=== PATIENT | female | born 1955 | race Hispanic/Latino ===

== ENCOUNTER 2018-06-06 05:54 | Inpatient (IN) | payer BC, SELFPAY ==
[2018-05-31 13:41] VITALS: BMI 27.4
[2018-06-06] VITALS (13 sets, daily range): BP systolic 84–125; BP diastolic 51–67; PULSE 69–94; RESP 11–19; TEMP 36.3–36.7; O2SAT 95–100; BMI 27.4
[2018-06-06] MEDS: PREGABALIN 75 MG CAPSULE PO (06:55)
[2018-06-06] MEDS: ACETAMINOPHEN 325 MG TABLET 975 MG PO (06:55)
[2018-06-06] MEDS: CELECOXIB 200 MG CAPSULE PO (06:55)
--- NOTE | 2018-06-06 07:06 | DI.RAD.S_ITS ---
PROCEDURE: XR PELVIS 1-2V INDICATIONS: post operative left hip TECHNIQUE: 1 view of the lower pelvis acquired. [facility] LATERAL HIP RT, 02/03/2017, 11:10. [facility] [place] Lydia, CR, XR PELVIS W LATERAL HIP RT, 01/14/2017, 9:14. [facility], CR, PELVIS 1 OR 2 VIEWS, 01/04/2017, 11:29. [facility] [place] Lydia, CR, XR PELVIS W LATERAL HIP RT, 12/22/2016, 11:46. [facility] Lydia, CR, XR PELVIS WITH BILATERAL LATERAL HIPS, 05/11/2018, 16:48. FINDINGS: Bones: Patient is status post remote right hip arthroplasty which is stable in appearance compared to prior examinations. Patient is status post recent left hip arthroplasty, with hardware components in expected positions. The hip joint appears congruent. The visualized bony structures appear intact. Soft tissues: Overlying postoperative changes are noted. No suspicious soft tissue densities. IMPRESSION: Expected postsurgical change for recent left hip arthroplasty. Dictated by: Erendira Hilliard MD, PhD on 06/06/2018 at 8:57 Approved by: Erendira Hilliard MD, PhD on 06/06/2018 at 8:59
--- NOTE | 2018-06-06 07:07 | SUR.PREOP ---
Assumed care of pt. Report given by Jewell. Daughter translating at bedside when needed. Pt appears calm.
[2018-06-06] MEDS: LACTATED RINGERS 1,000 ML 42 ML IV ×2 (07:36→09:26)
--- NOTE | 2018-06-06 07:48 | PM.PREOP ---
Pre-operative Note Interval Note Pre-op Check: Yes History & Physical Reviewed by Physician Changes: No
[2018-06-06] MEDS: CEFAZOLIN 2 GM/100 ML FROZ.PIGGY IV ×3 (07:55→23:52)
[2018-06-06] MEDS: TRANEXAMIC ACID 1,000 MG VIAL 1000 MG INJ ×2 (08:21→09:18)
[2018-06-06] MEDS: BUPIVACAINE 0.25% W/ EPI VIAL 50 ML INJ (08:31)
--- NOTE | 2018-06-06 08:37 | SUR.OPER ---
Lateral on padded OR bed. Gel axillary roll. Arms secured on padded armboard with pillow supporting top arm. Padded hip positioner braces x4 - anterior and posterior chest and pelvis. Additional gel pad used anterior pelvis. Gel pad under bottom leg from knee to foot and secured with tape over sheet.
--- NOTE | 2018-06-06 10:07 | SUR.PHASEI ---
pt meets criteria for tansfer to [place], Rn unavailable at this time for report.
[2018-06-06] MEDS: LACTATED RINGERS 1,000 ML 125 ML IV ×2 (11:13→18:58)
--- NOTE | 2018-06-06 11:41 | PC.NURSE ---
Pt to room 224 via bed from PACU. Pt is croatian speaking and has family at the bedside. Pt denies pain, nausea, or shortness of breath. Pt is very sleepy but completely alert and intact when questions are asked of her. Pt and family oriented to room, call light, bed controls, and tv controls. Spouse is planning to spend the night at the hospital to assist with interpretation/language. PT denies needs at this time and agrees to call for assistance as needed. Bed alarm on for safety.
--- NOTE | 2018-06-06 12:01 | P.OP_ITS ---
Operative Date/Time/Diagnoses Date of procedure: 06/06/18 Time of procedure: 08:29 Pre-op diagnosis: Left hip degenerative joint disease Post-op diagnosis: same Procedure & Clinicians Procedure: Left total hip arthroplasty (CPT code 17791 with diver assistant) Same procedure as scheduled: Yes Indications: Patient is an 62-year-old female with severe left hip DJD. The patient has pain with activities and at rest, limited ambulation and activity tolerance, difficulties with ADLs, and failure of conservative treatment. We have discussed the nature of condition, treatment options, risks and benefits, and patient elects to proceed with total hip arthroplasty and gives informed consent. Surgeon: Corey Horowitz Pasteuriser Operator: Erika Carrero Anesthesia Type: General and Spinal Operative Notes Closure Type: primary Specimen(s): none sent Implants & Drains: Acetabulum: Madden and Nephew R3 acetabular component size 50 mm Femoral component: Madden [employer] Nephew Synergy stem size 12 with standard offset Femoral head: 32 mm + 4 Oxinium Estimated Blood Loss (mL): 100 Procedure in detail: After satisfaction induction of anesthetic, and administration of IV antibiotics, the patient was positioned in the lateral decubitus position with all bony prominences well padded and pelvic position secured using a hip supervisor electronics assembly positioning device. Left hip and lower extremity prepped and draped in the usual sterile fashion, 1st dose of intravenous tranexamic acid was administered, then a longitudinal incision was created centered over the greater trochanter and carried sharply through the skin and subcutaneous tissues down to the fascia isaac which was divided longitudinally and retracted with a Charnley retractor. External rotators visualize, cut, tagged, and retracted posteriorly, then the capsule was cut in a T-type fashion with the corners tagged and retracted. Hip was dislocated and femoral neck cut made according to preoperative templating. Acetabular retractors then placed, and the acetabular labrum and osteophytes were excised. The acetabulum was then sequentially reamed to 49 mm with an excellent circumferential ream and fit with the trial. The trial component was removed and a permanent size 50 mm Madden and Nephew R3 acetabular component was selected, positioned, and impacted with satisfactory position and fixation achieved. Permanent liner was then inserted with the elevated lip directed posteriorly. Soft tissue then removed off the lateral femoral neck in the lateral neck was entered using a box osteotome. T-handled reamers placed down the canal followed by sequential broaching to 12 with the final broach left in place for trial reduction which demonstrated good leg length, range of motion, and stability characteristics with a 32 mm +0 trial ball, but excellent stability leg length and range of motion characteristics with a 32 mm +4 trial ball. The trial and broach were removed, and a permanent size 12 Madden and Nephew Synergy stem was selected and inserted with excellent position and fixation achieved. Another trial reduction yielded the above characteristics so the trial ball was exchanged for a permanent 32 mm + 4 Oxinium ball. The hip was irrigated and reduced and excellent leg length range of motion and stability characteristics were achieved and maintained. The hip was copiously irrigated, and the capsule repaired with #2 Ethibond, and the piriformis was repaired back to the greater trochanter with the same. Fascia isaac closed with interrupted #1 Ethibond sutures, and the subcutaneous tissues were closed in 2 layers of 0 Vicryl and 2 0 Vicryl. Skin was closed with jeannie and sterile dressings applied. Second dose of tranexamic acid was administered intravenously, and the anesthetic was terminated. Complications: none Condition: stable Disposition: PACU Plan for aftercare: Patient will be admitted to the acute care ramírez, and anticipate discharge on postop day 1-2 with follow-up in office in 10-14 days. Outpatient physical therapy will be arranged and patient will continue to observe posterior hip precautions. Patient will continue use of postoperative Lovenox for 10 days postop.
--- NOTE | 2018-06-06 17:57 | PT.IIE ---
Current Diagnoses Unilateral primary osteoarthritis, left hip (06/06/18) Other intervertebral disc degeneration, lumbar region (06/06/18) Surgery Performed Operation Date: 06/06/18 07:45 Actual Procedures p Total Hip Arthroplasty(Left) - Corey Horowitz MD Surgical History (Last Updated 05/31/18 @ 13:48 by Carol Laehy, RN) History of bladder surgery (Acute) Medical History (Last Updated 05/31/18 @ 13:50 by Carol Leahy, RN) Anxiety (Acute) Bilateral shoulder pain (Acute) GERD (gastroesophageal reflux disease) (Acute) History of headache (Acute) Hot flashes (Acute) Hyperlipidemia (Acute) Impaired vision (Acute) Impairment of balance (Acute) Osteoarthritis (Acute) Other intervertebral disc degeneration, lumbar region (Acute) Post-menopause (Acute) Primary osteoarthritis of left hip (Acute) Physical Therapy Inpatient Evaluation/Re-Eval M1 PT/OT-IP Prior Functional Status Start: 06/06/18 15:10 Freq: NEEDED Status: Active Protocol: Document 06/06/18 16:02 EA (Rec: 06/06/18 16:13 EA [id number]) Medical Review Prior Functional Status Medical History Reviewed Yes Diet/Fluid Consistency Regular Communication WNL Mobility and Gait Indep with ability to ambulate > 2 blocks with STC Activities of Daily Living and IADL's Independent Social History Household Members spouse family children Living Arrangements House Number of Floors (Floors) Two Floors Number of Stairs To Enter/Railing? 6 steps with rails to both sides. Home Equipment Raised Toilet Seat Without Armrests Employment Status Unemployed Additional Social History Comment with supportive and children M2 PT-IP Current Condition Start: 06/06/18 15:10 Freq: NEEDED Status: Active Protocol: Document 06/06/18 16:02 EA (Rec: 06/06/18 16:13 EA [id number]) Physical Therapy Current Condition Current Condition Evaluation Date 06/06/18 Treatment Diagnosis Left JUDITH Onset Date 06/06/18 Precautions Posterior Hip Precautions No Hip Flexion > 90 degrees No Hip Internal Rotation No Hip Adduction Other Precautions Always turn to good side when ambulating; pillow inbet knees when sleeping Weight Bearing Status Weight Bearing Status Weight Bear as Tolerated M3 PT-IP Subjective Start: 06/06/18 15:10 Freq: NEEDED Status: Active Protocol: Document 06/06/18 16:02 EA (Rec: 06/06/18 16:13 EA [id number]) Subjective Physical Therapy Visit Type Type Initial Evaluation Visit Start Time 14:00 Visit Stop Time 14:45 Total Visit Minutes 45 Physical Therapy Visit Comments Patient Comments Patient wants to mobilize and transfers to chair for before dinner. Short Term Goals Be able to transfer and mobilize indep. Therapy Pain Assessment Pain When Pain Assessed During Mobility Pain Present Pain Present Pain Reported M4 PT-IP Mobility and Gait Start: 06/06/18 15:10 Freq: NEEDED Status: Active Protocol: Document 06/06/18 16:02 EA (Rec: 06/06/18 17:09 EA [id number]) PT-Bed Mobility Assessment Rolling Level of Assist Minimal Assistance Supine to Sit Supine to Sit Minimal Assistance Sit to Supine Sit to Supine Contact Guard Assistance Scooting Scooting to Edge of Bed Minimal Assistance PT-Transfer Assessment Sit to and From Stand Sit to and from Stand Independent Equipment Transfer Assistive Device Gait Belt Front Wheeled Walker Transfers Transfer Destination Bed Chair Bedside Commode Transfer Technique Stepping transfers Transfer Ability Level of Assist Contact Guard Assistance Gait Assessment Gait Gait Assistance Required: Contact Guard Assist Able to Maintain Weight Bearing Status Yes During Gait Assistive Devices Assistive Device Front Wheeled Walker Gait Deviations General Gait Pattern Antalgic Decreased Stride Length Factors Limiting Gait Function Factors Limiting Gait Function Decreased Activity Tolerance Decreased Strength Pain Comments Gait Comments Requires cues as patient does not wants to place weight to affected leg Stair Climbing Assessment Devices Stair Climbing Assistive Devices Four Wheel Walker PT-Balance Assessment Sitting Balance and Reactions Static Sitting Balance Ability Normal Dynamic Sitting Balance Ability Good Standing Balance and Reactions Static Standing Balance Ability Good Dynamic Standing Balance Ability Fair M5 PT-IP Objective Assessments Start: 06/06/18 15:10 Freq: NEEDED Status: Active Protocol: Document 06/06/18 16:02 EA (Rec: 06/06/18 17:09 EA [id number]) Orientation Orientation/Cognition Level of Alertness Alert Orientation Name Date Year Language Function Ability Bermudian as Second Language Safety Awareness Understands Safety Issues Comments Requires job recruiter as patient first language is estonian Gross Range of Motion Upper Extremity ROM Assessment Within Functional Limits Lower Extremity ROM Assessment Within Functional Limits Impairments Right not properly assess due to pre-caution Strength Upper Extremity Strength Assessment Within Functional Limits Lower Extremity Strength Assessment Within Functional Limits Hip 3/5 at least bt not properly tested due to pre-caution Coordination Assessment Gross Coordination Gross Coordination WNL Assessment Finger to Nose Test Normal Performance Pronation/Supination Test Normal Performance Foot Tapping Test Normal Performance Heel on Black Test Normal Performance Sensation Assessment Sensation Gross Sensation WNL Muscle Tone Muscle Tone WNL Yes M6 PT-IP Treatment Start: 06/06/18 15:10 Freq: NEEDED Status: Active Protocol: Document 06/06/18 16:02 EA (Rec: 06/06/18 17:09 EA [id number]) Physical Therapy Treatment Exercises Exercises Ankle Pumps Gluteal Sets Quad Sets Heel Slides Education Education Provided Precautions Weight Bearing Status Post-Op Packet Safety M7 PT-IP Assessment and Plan Start: 06/06/18 15:10 Freq: NEEDED Status: Active Protocol: Document 06/06/18 16:02 EA (Rec: 06/06/18 17:09 EA [id number]) PT Summary Assessment and Plan Potential Rehabilitation Potential Excellent Status of Condition at Evaluation Stable Summary Impairments Pain ROM Strength Balance Transfers Gait Activity Tolerance Progress Towards Goals Progressing Toward Goals Assessment Summary Patient exhibits mild difficulty with bed mobility and transfers due to pain and weakness to LLE; patient at this time requires assistance for transfers and mobility. Patient would benefit with skilled PT prior to discharge tomorrow to practice functional distance amb and stairs. Patient exhibits good potential for recovery. Goals Bed Mobility Goal Independent Transfer Goal Independent Gait Goal Independent Gait Distance 50 ft Days to Meet Goals 1 Frequency of Treatment Frequency Of Treatment Twice a Day Treatment Plan Physical Therapy Treatment Plan Bed Mobility Training Transfer Training Gait Training Therapeutic Exercise Balance Retraining Post Op Education Discharge Planning Hot or Cold Pack Recommendations To Nursing Amount of Assist Needed 1 Person Assist Discharge Recommendations PT Discharge Recommendations Home with Assistance
--- NOTE | 2018-06-06 17:59 | PC.NURSE ---
Shift note: Katiana able to transfer to BSC and then to bed with minimal 1 person assist. Denies residual numbness to legs, drsg to L hip remains CDI. No drain. Voiding with no difficulty. Denies nausea, diet advanced to regular. VS stable. RA oxygen 93-98%, continuous pulse ox on per spinal order protocol. She calls appropriately, spouse Keven at bedside assisting to translate for her. Encouraged to call if she has pain or other needs/concerns.
[2018-06-06] MEDS: ASPIRIN EC 81 MG TABLET PO (21:08)
[2018-06-07 00:30] VITALS: BP 103/78; PULSE 81; RESP 15; TEMP 36.6; O2SAT 95
[2018-06-07 03:10] VITALS: BP 116/63; PULSE 80; RESP 16; TEMP 36.7; O2SAT 91
[2018-06-07] MEDS: LACTATED RINGERS 1,000 ML 125 ML IV (03:29)
[2018-06-07 05:41] LABS: Hematocrit 34.4 % (36-46); Hemoglobin 11.4 g/dL (12.0-16.0)
[2018-06-07 07:00] VITALS: BP 117/62; PULSE 78; RESP 18; TEMP 36.5; O2SAT 94
--- NOTE | 2018-06-07 08:03 | P.DS_ITS ---
History of Present Illness Date Patient Seen: 06/07/18 Time Patient Seen: 08:05 Chief complaint: [id number] Narrative: Patient is seen bedside status post left JUDITH postop day 1. Patient is doing well she is not any pain and has been ambulating well with physical therapy. She would like to go home today. She denies any nausea vomiting chest pain or shortness of breath. Discharge Providers Date of admission: 06/06/18 05:54 Primary care physician: Cb Yoder MD Consults: 06/06/18 10:37 Consult to Discharge Planning Routine Comment: Consult to Physical Therapy Evaluate & Treat Comment: Physician Instructions: post op JUDITH protocol Consult to Respiratory Therapy Evaluate & Treat Comment: Physician Instructions: Evaluate and treat Discharge provider: Radhika Low PA-C Summary Discharge Diagnosis: Left hip osteoarthritis. Hospital Course: Patient was transferred to the acute care floor status post left JUDITH on 06/06/2018. Patient tolerated the procedure well with no major complications. Patient was seen by Physical therapy who recommended that the be patient discharged home with outpatient PT. Patient is stable ready for discharge on 06/07/2018. She will go home on Lovenox for DVT prophylaxis as well as oxycodone for pain medication. Status at Discharge Cognitive/behavioral status at discharge: Alert and oriented x4 Functional status at discharge: uses cane/walker Overall status at discharge: patient is progressing back to baseline Time Spent with Patient Less than 30 minutes Exam Vital Signs (past 8 hours): - 06/07/18 00:30 06/07/18 03:10 Temperature 97.9 F 98.0 F Pulse Rate 81 80 Respiratory Rate 15 16 Blood Pressure 103/78 116/63 Pulse Oximetry 95 91 Oxygen Delivery Method Room Air Oxygen Flow Rate 2 Objective Labs Result Diagrams: 06/07/18 05:17 Labs: Laboratory Results - last 24 hr 06/07/18 05:17 Hgb 11.4 L Hct 34.4 L Discharge Plan Discharge Plan Patient Disposition: Home, Self-Care Discharge Med Rec/Prescriptions Prescriptions: New hydroxyzine pamoate 25 mg Capsule 25 mg PO Q6HR PRN (Reason: Spasms) Qty: 0 RF: 0 oxycodone-acetaminophen 5-325 mg Tablet 1 tab PO Q4HR PRN (Reason: Pain, Severe (7-10)) Qty: 0 RF: 0 enoxaparin [Lovenox] 40 mg/0.4 mL syringe 40 mg SUBCUT DAILY Qty: 4 RF: 0 Continue meloxicam 15 MG tablet 15 mg PO QDAY Qty: 0 RF: 0 naproxen [Naprosyn] 500 MG tablet 500 mg PO QDAY Qty: 0 RF: 0 VITAMIN D (Vitamin D3) 1,000 u PO QDAY Qty: 0 RF: 0 aspirin 81 MG tablet,delayed release (DR/EC) 81 mg PO BID Qty: 60 RF: 0 gabapentin 300 mg Capsule 300 mg PO TID RF: 0 Follow up/Referrals: [facility] [Provider Group] - 06/13/18 3:10 pm (With Samuel Adrian PA-C at [facility].) Provider Discharge Instructions Diet: Diet as Tolerated Activity: WBAT, follow posterior hip precautions, use walker until cleared by PT. Cold/Heat Therapy: Apply ice 20 minutes at a time at least hourly while awake. Wound Care Report to your healthcare provider any signs of infection, such as:: chills, fever, night sweats, increased pain and unusual drainage Dressing: Keep dressing clean, dry, and intact. Visit Report/Discharge Packet Instructions: DI for Hip Replacement Print Language: Lithuanian Discharge Data Primary Care Provider: Cb Yoder Attending Provider: Corey Horowitz Admit Date/Time: 06/06/18 05:54 Quality VTE Deep Vein Thrombosis/Pulmonary Embolism Present on Admission: No
[2018-06-07] MEDS: ASPIRIN EC 81 MG TABLET PO (08:34)
[2018-06-07] MEDS: CEFAZOLIN 2 GM/100 ML FROZ.PIGGY IV (08:34)
--- NOTE | 2018-06-07 11:23 | OT.IP.EVAL ---
Current Diagnoses Unilateral primary osteoarthritis, left hip (06/06/18) Other intervertebral disc degeneration, lumbar region (06/06/18) Surgery Performed Operation Date: 06/06/18 07:45 Actual Procedures p Total Hip Arthroplasty(Left) - Corey Horowitz MD Past Medical History (Last Reviewed 06/07/18 @ 08:38 by Fatimah Parker, PT) Anxiety (Acute) Bilateral shoulder pain (Acute) GERD (gastroesophageal reflux disease) (Acute) History of headache (Acute) Hot flashes (Acute) Hyperlipidemia (Acute) Impaired vision (Acute) Impairment of balance (Acute) Osteoarthritis (Acute) Other intervertebral disc degeneration, lumbar region (Acute) Post-menopause (Acute) Primary osteoarthritis of left hip (Acute) Surgical History (Last Reviewed 06/07/18 @ 08:38 by Fatimah Parker, PT) History of bladder surgery (Acute) Occupational Therapy Inpatient Evaluation/Re-Eval M1 PT/OT-IP Prior Functional Status Start: 06/07/18 16:39 Freq: NEEDED Status: Active Protocol: Document 06/07/18 11:23 INDER (Rec: 06/07/18 16:51 KYLIE [id number]) Medical Review Prior Functional Status Medical History Reviewed Yes Diet/Fluid Consistency Regular Communication WNL Mobility and Gait Indep with ability to ambulate > 2 blocks with STC Activities of Daily Living and IADL's Independent Social History Household Members spouse family children Living Arrangements House Number of Floors (Floors) One Floor Number of Stairs To Enter/Railing? 6 with 2 rails Home Environment Standard Height Toilet Tub/Shower Doors Home Equipment Raised Toilet Seat Without Armrests Shower Seat with Backrest Heart Nurse Employment Status Unemployed Additional Social History Comment Gave pt long bath sponge and shoe horn, sock aid M2 OT-IP Current Condition Start: 06/07/18 16:39 Freq: Status: Active Protocol: Document 06/07/18 11:23 PJMatt (Rec: 06/07/18 16:51 PJ [id number]) Occupational Therapy Current Condition Current Condition Evaluation Date 06/07/18 Treatment Diagnosis decreased self care, functional mobility after L JUDITH Diagnosis Onset Date 06/06/18 Post Operative Precautions Posterior Hip Precautions No Hip Flexion > 90 degrees No Hip Internal Rotation No Hip Adduction Other Precautions Always turn to good side when ambulating; pillow in between knees when sleeping Weight Bearing Status Weight Bearing Status Weight Bear as Tolerated M3 OT- IP Subjective and Pain Start: 06/07/18 16:39 Freq: Status: Active Protocol: Document 06/07/18 11:23 PJM (Rec: 06/07/18 16:51 [facility] [id number]) OT- Subjective Occupational Therapy Visit Type Type Initial Evaluation Visit Start Time 10:25 Visit Stop Time 11:23 Total Visit Minutes 58 Occupational Therapy Visit Comments Patient Comments I am going home today. Pt speaks Indonesian. and daughter here to translate. Patient/Caregiver Goals to be able to walk without a device OT Pain Assessment Pain When Pain Assessed After Treatment Pain Present Pain Present Pain Reported Location Left Hip Intensity 2 Scale Used Numeric (1 - 10) Description Aching M4 OT- IP ADL's Start: 06/07/18 16:39 Freq: Status: Active Protocol: Document 06/07/18 11:23 PJ (Rec: 06/07/18 16:51 [facility] [id number]) OT [id number] General Evaluation Self-Feeding Ability Independent OT ADL-Grooming General Evaluation Grooming Ability Independent Comments OT Grooming Comments standing at sink with FWW OT ADL-Oral Care General Eval Oral Care Ability Independent Devices Oral Care Devices Toothbrush Comments Oral Care Comments standing at sink with FWW OT ADL-Dressing General Eval Upper Body Dressing Ability Independent Lower Body Dressing Ability Minimal Assistance Areas Needing Assistance Underpants/Brief Socks Shoes Assistive Devices Dressing Assistive Devices Long Handled Shoe Horn Heart Nurse Sock Aid Comments OT Dressing Comments Provided education re: lower body dressing with manager data warehouse, sock aid and long shoe horn. Pt modif indep with underwear and socks with adaptive equipment, but needs min assist with tennis shoes due to tight fit. Pt has slip on shoes at home and family can also assist PRN. OT ADL-Toileting General Evaluation Toileting Ability Independent OT ADL-Bathing General Evaluation Bathing Ability Minimal Assistance Areas Needing Assistance Wash/Dry Lower Extremities Devices Bathing Equipment Long Handled Sponge or Truck And Transport Mechanic Held Shower Sprayer Shower Chair with Arms Grab Bars Comments OT Bathing Comments Pt plans to sponge bath until she can step over edge of tub. M5 OT- IP IADL's Start: 06/07/18 16:39 Freq: Status: Active Protocol: Document 06/07/18 11:23 PJM (Rec: 06/07/18 16:51 [facility] [id number]) OT-Instrumental Activities of Daily Living Deficits IADL Deficits Identified Deficits Home Safety Awareness Awareness of Need for Assistance at Home Good Awareness Ability to Problem Solve Emergency Able to Problem Solve Situations Medication Management Medication Management No Deficits Identified Money Management Money Management No Deficits Identified Meal Preparation Meal Preparation Caregiver Provides Assist Meal Preparation Comments 2 adult daughters and can assist PRN Co Founder And Cto Co Founder And Cto Caregiver Provides Assist Co Founder And Cto Comments 2 adult daughters and can assist PRN Driving Driving Caregiver Provides Assist M6 OT- IP Functional Cognition Start: 06/07/18 16:39 Freq: Status: Active Protocol: Document 06/07/18 11:23 PJ (Rec: 06/07/18 16:51 [facility] [id number]) Cognitive Factors Limiting Selfcare Function Cognitive Ability Level of Alertness Alert Patient Orientation Name Age Birthday Month Date Year Day of Week Place Situation Attention Span Ability Capable of Focused Attention Ability to Follow Commands Able to Follow Multi-Step Commands Memory Description No Deficits Noted Safety Awareness No Deficits Noted Problem Solving Ability No deficits Noted Executive Function Ability No Deficits Noted Abstract Thinking Ability No Deficits Noted Cognitive Comments Cognitive Assessment Comments Pt recalls 3/3 hip precautions and applies them well during self care tasks. OT- Vision and Hearing OT- Hearing Assessment OT- Hearing Assessment WFL OT- Vision Assessment Visual Acuity WFL Vision Assessment Comments No recent changes per pt. M7 OT- IP Mobility and Balance Start: 06/07/18 16:39 Freq: Status: Active Protocol: Document 06/07/18 11:23 PJ (Rec: 06/07/18 16:51 [facility] [id number]) OT- Bed Mobility Assessment Supine to Sit Supine to Sit Assist Independent Scooting Scooting to Edge of Bed Independent OT-Transfer Assessment Sit to and From Stand Sit to and from Stand Independent Transfers Transfer Ability Independent Technique Transfer Destination Bed Chair Shower Stall Toilet Transfer Technique Stand Step Pivot Devices Transfer Assistive Devices Gait Belt Front Wheeled Walker OT- Gait Assessment Gait Gait Assistance Required: Independent Assistive Devices Assistive Device Gait Belt Front Wheeled Walker OT- Balance Assessment Sitting Balance and Reactions Static Sitting Balance Ability Normal Dynamic Sitting Balance Ability Good Standing Balance and Reactions Static Standing Balance Ability Good Dynamic Standing Balance Ability Good M8 OT- IP Objective Assessments Start: 06/07/18 16:39 Freq: Status: Active Protocol: Document 06/07/18 11:23 PJM (Rec: 06/07/18 16:51 PJ [id number]) OT Gross Range of Motion Upper Extremity Range of Motion Assessment Within Functional Limits OT Strength Upper Extremity Strength Assessment Within Functional Limits OT- Coordination Assessment Upper Extremity Finger to Nose Test Within Functional Limits Finger Tapping Test Within Functional Limits OT-Muscle Tone Assessment Muscle Tone WNL Yes OT Sensation Assessment Comments Summary Comments WNL BUE Edema Edema Absent M9 OT- IP Assessment and Plan Start: 06/07/18 16:39 Freq: Status: Active Protocol: Document 06/07/18 11:23 PJM (Rec: 06/07/18 16:51 [facility] [id number]) OT Summary Assessment and Plan Potential Rehabilitation Potential Excellent Analytic Complexity at Evaluation Low Summary OT Impairments Pain Assessment Summary Low complexity OT assessment and all OT education completed in one session regarding posterior hip precautions, adapted techniques for lower body dressing, bathing, toileting. Pt has manager data warehouse and was provided with sock aid and long bath sponge and shoe horn at her request. Pt moving very well and family will provide 24 hr assist at home PRN. No further OT services needed. Discharge Recommendations OT Discharge Recommendations Home with Assistance
--- NOTE | 2018-06-07 11:31 | PC.NURSE ---
Pt showered with OT and was assisted with Dressing. Dressing to left hip changed to coversite dressing. Will provide Lovenox teaching to Pt. and perform discharge teaching.
--- NOTE | 2018-06-07 11:47 | PT.IPTN ---
Current Diagnoses Unilateral primary osteoarthritis, left hip (06/06/18) Other intervertebral disc degeneration, lumbar region (06/06/18) Surgery Performed Operation Date: 06/06/18 07:45 Actual Procedures p Total Hip Arthroplasty(Left) - Corey Horowitz MD Physical Therapy Treatment Note M2 PT-IP Current Condition Start: 06/06/18 15:10 Freq: NEEDED Status: Active Protocol: Document 06/06/18 16:02 EA (Rec: 06/06/18 16:13 EA [id number]) Physical Therapy Current Condition Current Condition Evaluation Date 06/06/18 Treatment Diagnosis Left JUDITH Onset Date 06/06/18 Precautions Posterior Hip Precautions No Hip Flexion > 90 degrees No Hip Internal Rotation No Hip Adduction Other Precautions Always turn to good side when ambulating; pillow inbet knees when sleeping Weight Bearing Status Weight Bearing Status Weight Bear as Tolerated M3 PT-IP Subjective Start: 06/06/18 15:10 Freq: NEEDED Status: Active Protocol: Document 06/07/18 09:38 DLM (Rec: 06/07/18 11:47 DLM [id number]) Subjective Physical Therapy Visit Type Type Treatment Note Visit Start Time 08:55 Visit Stop Time 09:38 Total Visit Minutes 43 Physical Therapy Visit Comments Patient Comments She feels safe to go home today, no pain Therapy Pain Assessment Pain When Pain Assessed During Mobility Pain Present Pain Present Denied Pain M4 PT-IP Mobility and Gait Start: 06/06/18 15:10 Freq: NEEDED Status: Active Protocol: Document 06/07/18 09:38 DLM (Rec: 06/07/18 11:47 DLM [id number]) PT-Bed Mobility Assessment Supine to Sit Supine to Sit Independent Sit to Supine Sit to Supine Independent Scooting Scooting to Edge of Bed Independent PT-Transfer Assessment Sit to and From Stand Sit to and from Stand Independent Equipment Transfer Assistive Device Gait Belt Front Wheeled Walker Orthotic/Prosthetic Devices or Brace: No Transfers Transfer Destination Chair Transfer Technique Stand Step Pivot Transfer Ability Level of Assist Independent Gait Assessment Gait Gait Assistance Required: Independent Distance (Feet) (feet) 175 Able to Maintain Weight Bearing Status Yes During Gait Assistive Devices Assistive Device Gait Belt Front Wheeled Walker Orthotic/Prosthetic Devices or Brace: No Gait Deviations General Gait Pattern Antalgic Factors Limiting Gait Function Factors Limiting Gait Function Decreased Strength Stair Climbing Assessment Evaluation Level of Assist On Stairs Standby Assistance Devices Stair Climbing Assistive Devices Left Railing Right Railing Technique/Endurance Stair Climbing Direction Ascend and Descend Stair Climbing Technique Step to Step Number of Steps Climbed 3 Query Text: Stair Climbing Set # Repetitions (reps) 4 PT-Balance Assessment Sitting Balance and Reactions Static Sitting Balance Ability Normal Dynamic Sitting Balance Ability Normal Standing Balance and Reactions Static Standing Balance Ability Good Dynamic Standing Balance Ability Good Device Used FWW M5 PT-IP Objective Assessments Start: 06/06/18 15:10 Freq: NEEDED Status: Active Protocol: Document 06/06/18 16:02 EA (Rec: 06/06/18 17:09 EA [id number]) Orientation Orientation/Cognition Level of Alertness Alert Orientation Name Date Year Language Function Ability Sinhala as Second Language Safety Awareness Understands Safety Issues Comments Requires shank tapper as patient first language is prydeinig Gross Range of Motion Upper Extremity ROM Assessment Within Functional Limits Lower Extremity ROM Assessment Within Functional Limits Impairments Right not properly assess due to pre-caution Strength Upper Extremity Strength Assessment Within Functional Limits Lower Extremity Strength Assessment Within Functional Limits Hip 3/5 at least bt not properly tested due to pre-caution Coordination Assessment Gross Coordination Gross Coordination WNL Assessment Finger to Nose Test Normal Performance Pronation/Supination Test Normal Performance Foot Tapping Test Normal Performance Heel on Black Test Normal Performance Sensation Assessment Sensation Gross Sensation WNL Muscle Tone Muscle Tone WNL Yes M6 PT-IP Treatment Start: 06/06/18 15:10 Freq: NEEDED Status: Active Protocol: Document 06/07/18 09:38 DLM (Rec: 06/07/18 11:47 DLM [id number]) Physical Therapy Treatment Exercises Exercises Ankle Pumps Gluteal Sets Quad Sets Heel Slides Supine Hip Abduction Education Education Provided Precautions Weight Bearing Status Post-Op Packet Safety Equipment Issued Equipment Type and Company Her spouse is present for training and assists with translation as needed M7 PT-IP Assessment and Plan Start: 06/06/18 15:10 Freq: NEEDED Status: Active Protocol: Document 06/07/18 09:38 DLM (Rec: 06/07/18 11:47 DLM [id number]) PT Summary Assessment and Plan Summary Progress Towards Goals Safe For Discharge Goals Met Frequency of Treatment Frequency Of Treatment Discharge Recommendations To Nursing Amount of Assist Needed Standby Assistance Discharge Recommendations PT Discharge Recommendations Home with Assistance Outpatient PT
--- NOTE | 2018-06-07 12:12 | PC.NURSE ---
Pt ready for discharge home. Lovenox teaching performed with Daughter Jayesh who will be giving the injections. Discharge teaching was printed in Bangladeshi. Discussed all discharge teaching with Daughter and Pt and they had no further questions. Pt out via w/c by RN to pov with daughter and all belongings.
--- NOTE | 2018-06-07 13:25 | CM.DANOTE ---
Discharge Planning/Care Management DCP: assessment: Case received, EMR reviewed and met with pt and her Manuel at 0830. Introduced self and role. Pt is a 62 year old female who admitted yesterday for a planned orthopedic surgery: Surgeon: Dr. Horowitz. PCP: Cb Yoder Payer: [facility] out of [facility] Pt is seeing pt. OT order is obtained and OT to see pt today. Pt and her family identifiy their d/c goal as home with family support once pt can manage basic functional abilities. Family and Cell numbers available on white board in pt's room. P: follow prn to assist with any d/c needs that may arise. OF note: an orthopedic d/c summary has been entered since early childhood assistant. Pt and her family did well with the therapy and she did go home as planned. CM Discharge Assessment Start: 06/07/18 13:20 Freq: Status: Discharge Protocol: Document 06/07/18 13:21 ITV (Rec: 06/07/18 13:25 ITV [id number]) Discharge Planning Assessment History Provided By Patient Family Member Medical Record Is this patient on Medicare? No Prior Living Arrangements House Household Members spouse family children Comment lives with her spouse who works realtime reporter. Has adult daughters who can provide supportive assist Independent with ADL's Yes Is patient alert and oriented? Yes Comment PT will see pt. OT order is obtained and will see pt today Comment pt plans home with family when able to manage basic abilities Discharge Plan Home Transportation Arrangement family will transport Additional Comment pt's primary language is not Iranian. Her and daughter speak Iranian will and are with her to assist in communication. Review Status In Process Next Review Type Continued Stay Review
== END 2018-06-07 12:13 | disposition home or self-care (01) | DRG 470 ==
PROVIDERS: Admitting Provider Orthopaedic Surgery; Family Provider Family Medicine; PCP Family Medicine; Visit Provider Orthopaedic Surgery
PROC: 0SRB0JZ Replacement of Left Hip Joint with Synthetic Substitute, Open Approach (ICD-10-PCS; CPT 27130; principal; 2018-06-06 07:45)
DX: M16.12 Unilateral primary osteoarthritis, left hip (principal); Z96.641 Presence of right artificial hip joint
CPT/HCPCS: 36415; 72170; 85014; 85018; 94762; 97110; 97116; 97165; 97530; 97535; C1776; J0690; J1100; J2250; J2274; J2405; J2704; J3010

== ENCOUNTER → 2019-08-24 09:41 | Outpatient (CLI) | payer BC, SELFPAY ==
[2018-06-06 10:53] VITALS: BMI 27.4
--- NOTE | 2019-08-24 09:48 | DI.CT.S_ITS ---
PROCEDURE: CT UE RT WO CON INDICATIONS: primary osteoarthritis, rt shoulder TECHNIQUE: Noncontrast 1-1.5 mm thick sections acquired from the acromioclavicular joint to the inferior scapula, with coronal and sagittal reformatting. COMPARISON: None. FINDINGS: Image quality: Excellent. Bones: Severe glenohumeral joint osteoarthritis is seen with near complete loss of joint space, extensive subchondral sclerosis and cyst formation, and prominent inferior marginal osteophyte formation. Moderate acromioclavicular joint osteoarthritis is also seen with joint space narrowing, subchondral sclerosis and marginal osteophyte formation. No shoulder fracture or dislocation. No suspicious intraosseous lesion. Visualized right scapula and right ribs are intact. Soft tissues: There is no significant joint effusion. No gross full-thickness rotator cuff tendon rupture. No significant rotator cuff muscle atrophy. Visualized right lung field is clear. IMPRESSION: 1. Severe glenohumeral joint osteoarthritis and moderate acromioclavicular joint osteoarthritis. No fracture or dislocation. No suspicious intraosseous lesion. 2. No significant joint effusion. No significant rotator cuff muscle atrophy. No gross full-thickness rotator cuff tendon rupture. Dictated by: Lucio Lopez M.D. on 08/24/2019 at 10:18 Approved by: Lucio Lopez M.D. on 08/24/2019 at 10:45
== END ==
PROVIDERS: Family Provider Family Medicine; PCP Family Medicine; Visit Provider Orthopaedic Surgery
DX: M19.011 Primary osteoarthritis, right shoulder (principal)
CPT/HCPCS: 73200

== ENCOUNTER 2019-09-27 10:41 | Inpatient (IN) | payer BC, SELFPAY ==
[2018-06-06 10:53] VITALS: BMI 27.4
[2019-09-25 09:46] VITALS: BMI 27.6
[2019-09-27] VITALS (18 sets, daily range): BP systolic 112–143; BP diastolic 59–94; PULSE 78–102; RESP 10–36; TEMP 36.1–36.6; O2SAT 84–99; BMI 27.6
--- NOTE | 2019-09-27 06:00 | DI.RAD.S_ITS ---
PROCEDURE: XR SHOULDER RT 1V INDICATIONS: RIGHT TOTAL SHOULDER TECHNIQUE: Single view of the shoulder were acquired. COMPARISON: None. FINDINGS: Bones: No fractures or dislocations. No suspicious bony lesions. Visualized ribs appear intact. Expected postoperative alignment after right total shoulder arthroplasty with a surgical drain overlying the operative bed. Soft tissues: No suspicious soft tissue calcifications. IMPRESSION: Normal postoperative alignment established. Dictated by: Ap Mukherjee M.D. on 09/27/2019 at 16:54 Approved by: Ap Mukherjee M.D. on 09/27/2019 at 16:55
[2019-09-27] MEDS: ACETAMINOPHEN 325 MG TABLET 975 MG PO (11:48)
[2019-09-27] MEDS: CELECOXIB 200 MG CAPSULE PO (11:48)
[2019-09-27] MEDS: LACTATED RINGERS 1,000 ML 42 ML IV ×2 (13:15→15:08)
[2019-09-27] MEDS: MIDAZOLAM 2 MG/2 ML VIAL IV (13:31)
[2019-09-27] MEDS: fentaNYL 100 MCG/2 ML INJ 50 MCG IV (13:31)
--- NOTE | 2019-09-27 13:50 | SUR.PREOP ---
Block start time [1331] . Monitoring initiated and maintained throughout procedure. Oxygen and medications given per anesthesiologist instructions. Patient remained stable throughout procedure, no adverse reactions noted. Block end time [1341].
--- NOTE | 2019-09-27 13:51 | SUR.PREOP ---
Plant Biology Professor and at bedside.
[2019-09-27] MEDS: PREGABALIN 75 MG CAPSULE PO (14:04)
--- NOTE | 2019-09-27 14:13 | P.OP_ITS ---
Operative Date/Time/Diagnoses Date of procedure: 09/27/19 Time of procedure: 16:00 Pre-op diagnosis: Right shoulder osteoarthritis Post-op diagnosis: same Procedure & Clinicians Procedure: Right total shoulder replacement Same procedure as scheduled: Yes Indications: The patient has had progressively worsening right shoulder pain with radiographic changes consistent with arthritis. Non-operative management has failed and the patient has requested total shoulder replacement. The risks, benefits and alternatives to surgery were discussed with the patient prior to proceeding. Risks discussed included, but were not limited to, failure to relieve pain, stiffness, infection, nerve damage, deep venous thrombosis, pulmonary embolism, stroke, coma, heart attack, permanent paralysis and , as well as the potential need for eventual revision of the prosthetic. Surgeon: Gonzalez Sarmiento Resource Conservation Specialist: Neftali Camargo Click Yes if Unassisted: No Anesthesia Type: General, Peripheral nerve block and Local Operative Notes Findings: Significant osteoarthritic change with cartilage damage on both the humeral head and glenoid and substantial humeral head osteophytes. There were multiple cysts in the glenoid. Closure Type: primary Specimen(s): none sent Prosthetic devices, grafts, tissues, transplants, or devices: Prosthetics made during this procedure manufactured by the [employer] and included a Univers total shoulder system with a small vault lock glenoid, a 6 mm short [place] stem and a 42 x 17 Univers II humeral head. Applied: drain(s) and implant(s) Estimated Blood Loss (mL): 100 Blood products transfused: none Procedure in detail: The patient was seen in the pre-operative area, where the patient identified the right shoulder as the operative site and this was marked with my initials. The patient received pre-operative antibiotics, underwent an interscalene block, and was taken to the operating room and placed on the oper ative table in the supine position. After satisfactory anesthesia, a full ?time out? was performed. The patient was repositioned in the ?beach chair? position using a dedicated positioner. All pressure points were well padded, and the knees were slightly bent to prevent tension on the sciatic nerves. The right arm was prepared from the fingers to the base of the neck with ChloroPrep in the usual fashion and draped through sterile drapes. An approximately 12 cm incision was created, starting at the clavicle above the coracoid process and extended towards the deltoid insertion. The deltopectoral interval was used to access the shoulder. The cephalic vein was taken medially. A self retaining retractor was placed. The upper centimeter of the pectoralis major tendon was released. The ?three sisters? were identified and cauterized. The axillary nerve was palpated and protected throughout the case. The biceps was released from its groove and tenodesed over the top of the pectoralis major tendon. The subscapularis was released from the lesser tuberosity with a subscapularis peel and tagged for later repair. The shoulder was dislocated and a cutting guide was used for the proximal humeral osteotomy in 30 degrees of retroversion. A starter reamer was used followed by the two larger reamers. Broaching was then performed for a size 6, which had excellent rotational stability. A proximal humeral protector was then placed. We then removed the self-retaining retractor and placed retractors to access the glenoid. The subscapularis was released with a ?360 degree release? with care be ing taken to protect the axillary nerve with the inferior portion of this procedure. The remnant of labrum and biceps stump were removed. The appropriate size reamer was chosen with the glenoid sizer, and the guide pin placed. The glenoid was appropriately reamed. The center hole was enlarged. The guide for the superior hole and inferior slot was placed. The inferior slot was created after the drill holes. The trial glenoid was placed with good stability. We then cemented the final implant into place after irrigating the peg holes and drying them with thrombin-soaked Gelfoam. The center peg was coated with bone graft and Press-Fit. We returned our attention to the humerus, a trial humeral head was applied and a trial reduction performed. Stability was checked with 50% posterior translation with spontaneous reduction, 45? external rotation at the side with the subscapularis held in the repaired position and 70? of internal rotation in the ?scarecrow position?. This was felt to be satisfactory and the appropriate implants were opened. Five holes were drilled along the humeral osteotomy and #2 TiCron sutures placed for eventual subscapularis repair. The humeral prosthetic was impacted into the humerus. The version and cut angle screws were tightened. The humeral head was applied and impacted to both seat the head and fully seat the stem. The joint was relocated one final time. The joint was irrigated and the subscapularis repaired to the previously placed sutures using Logan-Tristan sutures. The top of the subscapularis was closed to the leading edge of the supraspinatus with a figure of 8 #2 TiCron to close the rotator interval. A deep drain was placed and brought out supero-laterally. The deltopectoral interval was closed with interrupted 0 Vicryl. The subcutaneous layer was closed with 3-0 Vicryl, and the skin with a running 3-0 V-Lock suture and SteriStrips. An Aquacel Ag dressing was applied, the patient?s arm was placed in a sling, and the patient was taken to recovery having tolerated the procedure well. Complications: none Post-operative Condition: stable Disposition: PACU Plan for aftercare: The patient will be maintained on a standard total shoulder replacement protocol with passive range of motion limited to 90 degrees forward flexion, 0 degrees external rotation at the side, 0 degrees abduction and internal rotation to the body. The patient will receive aspirin and sequential compression devices for DVT prophylaxis. The patient will be discharged home when safe for the home environment, likely tomorrow.
--- NOTE | 2019-09-27 14:13 | PM.PREOP ---
Pre-operative Note Interval Note History & Physical reviewed/Exam performed by Physician: Yes Changes to H&P: No
[2019-09-27] MEDS: CEFAZOLIN 2 GM/100 ML FROZ.PIGGY IV (14:15)
--- NOTE | 2019-09-27 14:50 | SUR.OPER ---
Beach chair with Erica/Dhruv shoulder positioner. Lower body on padded OR bed. Head in foam padded head cradle, secured with straps. Non-operative arm secured <90 degrees abduction. Pillow under knees. Safety belt at thigh. Cloth tape over blanket over lower legs.
[2019-09-27] MEDS: TRANEXAMIC ACID 1,000 MG VIAL 1000 MG INJ ×2 (14:53→15:39)
[2019-09-27] MEDS: THROMBIN (RECOMBINANT) 5,000 UNIT VIAL 5000 UNIT TOP (14:54)
[2019-09-27] MEDS: BUPIVACAINE 0.5% W/ EPI (PF) VIAL 30 ML INJ (14:55)
[2019-09-27] MEDS: fentaNYL 100 MCG/2 ML INJ IV ×2 (16:49→17:02)
[2019-09-27] MEDS: OXYCODONE/ACETAMINOPHEN 5/325 TABLET 1 TAB PO (17:31)
--- NOTE | 2019-09-27 17:37 | SUR.PHASEI ---
Gave pain medication po 2 to c/o pain.
[2019-09-27] MEDS: hydrOXYzine pamoate 25 MG CAPSULE PO (18:05)
[2019-09-27] MEDS: ONDANSETRON 4 MG/2 ML INJ IV (18:30)
[2019-09-27] MEDS: HYDROMORPHONE 0.5 MG INJ 0.2 MG IV (18:44)
[2019-09-27] MEDS: LACTATED RINGERS 1,000 ML 125 ML IV (19:06)
--- NOTE | 2019-09-27 19:31 | PC.NURSE ---
Addendum entered by Lizeth García R.N. 09/27/19 22:36: Pt resting quietly in bed with eyes closed. No signs of distress or discomfort. Spouse states pt's pain is going down. RUE in sling supported by single pillow in bed. Ice to right shoulder aquacel dressing. Addendum entered by Lizeth García R.N. 09/27/19 20:41: Pt up to commode with assistance for void. Vomited while on commode. Returned to bed and BL scd's replaced. Requests roll icer leave as spouse is bilingual and pt's preference is for spouse to assist with pt's needs/communications. States nausea and pain improved. Ice to right shoulder and RUE remains in sling. Ice chips and held hs meds d/t nausea/vomiting this evening shift. Original Note: Pt to room 210 from PACU awake and conversant. Sword Swallower accompanies pt and is able to assist this automobile service writer with translation while interviewing pt and admission process. Pt admits to right shoulder pain 9/10. Facial grimace present. Head of bed elevated as pt has emesis. Zofran and dilaudid administered iv with excellent results. Hemovac drain compressed to right shoulder surgical site. Aquacel dressing to right shoulder dry and intact. Ice to site. With the aid of the roll icer at this automobile service writer's request, pt is able to lead java j2ee developer tightly and admits to full sensation to right hand. Warm and pink digits to right hand. Pt is able to assist with repositioning in bed. BL calf scd's in place. Ice chips with assistance. Pt's spouse is rooming in overnight. Multiple family members present upon pt's arrival to floor. RUE supported in sling.
[2019-09-28] MEDS: OXYCODONE IR 5 MG TABLET PO ×3 (01:37→11:01)
[2019-09-28] MEDS: LACTATED RINGERS 1,000 ML 125 ML IV (03:30)
[2019-09-28 05:37] LABS: Hematocrit 34.4 % (36-46); Hemoglobin 11.7 g/dL (12.0-16.0); Mean Corpuscular HGB Conc 33.9 % (30-36); Mean Corpuscular Hemoglobin 30.5 PG (26-34); Mean Corpuscular Volume 89.8 fL (80-100); Platelet Count 195 X10^3/uL (150-400); Red Blood Cell Count 3.82 X10^6/uL (4.0-5.2); Red Cell Distribution Width 12.8 % (11.6-14.8); White Blood Cell Count 9.4 X10^3/uL (4.5-11.0)
[2019-09-28 06:00] VITALS: BP 114/65; PULSE 80; RESP 16; TEMP 36.3; O2SAT 93
[2019-09-28] MEDS: ACETAMINOPHEN 325 MG TABLET 975 MG PO (07:48)
[2019-09-28] MEDS: ASPIRIN EC 81 MG TABLET PO (07:49)
[2019-09-28] MEDS: DOCUSATE 100 MG CAPSULE PO (07:49)
[2019-09-28 08:00] VITALS: BP 126/56; PULSE 85; RESP 16; TEMP 36.7; O2SAT 94
--- NOTE | 2019-09-28 10:06 | PM.DS.1 ---
History of Present Illness History of Present Illness Date Patient Seen: 09/28/19 Time Patient Seen: 10:06 Chief complaint: [id number] Narrative: The history and physical is contained in the chart in a previously completed note. Please refer to that note for this information. Discharge Providers Provider Date of admission: 09/27/19 10:41 Discharge Date: 09/28/19 Primary care physician: Cb Yoder MD Consults: 09/27/19 18:14 Consult to Discharge Planning Routine Comment: Consult to Physical Therapy Evaluate & Treat Comment: PROM, pendulums, 90 FF, 0 ER, 0 Abd, IR to body Physician Instructions: Evaluate and Treat Discharge provider: Gonzalez Sarmiento MD Summary Hospital Course Discharge Diagnosis: 1. Right shoulder osteoarthritis 2. Mild post hemorrhagic anemia Hospital Course: The patient was admitted to the hospital and taken directly to the operating room on September 27, 2019. She underwent a right total shoulder replacement without complication. On postoperative day 1 she was anxious to go home with reasonable pain control. Status at Discharge Cognitive/behavioral status at discharge: oriented Functional status at discharge: independent ambulation Overall status at discharge: patient is progressing back to baseline Time Spent with Patient Time spent: Less than 30 minutes Exam Vital Signs (past 8 hours): - 09/28/19 06:00 09/28/19 08:00 Temperature 97.4 F L 98.1 F Pulse Rate 80 85 Respiratory Rate 16 16 Blood Pressure 114/65 126/56 L Pulse Oximetry 93 94 Oxygen Delivery Method Nasal Cannula Oxygen Flow Rate 0 Narrative Exam Narrative: Right shoulder wound is dressed with no drainage on the bandage. Light touch is intact in the radial, ulnar, muscular cutaneous, median and axillary nerve distributions. She can extend her thumb, abduct her thumb, abduct her fingers and can fire her biceps and deltoid. Objective Labs Result Diagrams: 09/28/19 05:15 Labs: Laboratory Results - last 24 hr 09/28/19 05:15 WBC 9.4 RBC 3.82 L Hgb 11.7 L Hct 34.4 L MCV 89.8 MCH 30.5 MCHC 33.9 RDW 12.8 Plt Count 195 Discharge Plan Discharge Plan Patient Disposition: Home Discharge orders & Medications Prescriptions: New aspirin 81 mg Tablet,Delayed Release (Dr/Ec) 81 mg PO BID 42 Days Qty: 84 RF: 0 oxycodone 5 mg Tablet 5 mg PO Q3HR PRN (Reason: Pain, Moderate (4-6)) Qty: 40 RF: 0 Continued cholecalciferol (vitamin D3) [Vitamin D3] 1,000 unit Capsule 1,000 unit PO DAILY Qty: 0 RF: 0 acetaminophen [Tylenol Extra Strength] 500 mg Tablet 500 mg PO DAILY PRN (Reason: Pain (Scale Score 1-3)) RF: 0 Follow up/Referrals: Cb Yoder MD [Primary Care Provider] - Gonzalez Sarmiento MD [Physician] - 2 Weeks Discharge Health Status Multidrug resistant organism: No MDRO Diet/Activity/Treatments Diet: Diet as Tolerated and Regular Activity: You may use your right hand in front of your body below shoulder level. Keep the arm in the sling until seen for follow-up. You may remove the sling for showering. Cold/Heat Therapy: Apply ice to the right shoulder for 15 minutes of every hour as needed for pain control. Skin/Wound/Dressing Care Report to your healthcare provider any signs of infection, such as:: chills, fever, night sweats, increased pain, unusual drainage and unusual redness Dressing: Leave the dressing in place until follow-up. You may shower with the dressing in place. If the center strip of the dressing becomes saturated with water or blood, please call the office to have it changed. Visit Report/Discharge Packet Instructions: DI for Shoulder Replacement Stand Alone Forms: Surgery Discharge Discharge Data Primary Care Provider: Cb Yoder
--- NOTE | 2019-09-28 10:14 | PT.IIE ---
Current Diagnoses Primary osteoarthritis, right shoulder (09/27/19) Surgery Performed Operation Date: 09/27/19 13:15 Actual Procedures p Total Shoulder Arthroplasty(Right) - Gonzalez Sarmiento MD Surgical History (Last Reviewed 06/07/18 @ 08:38 by Fatimah Parker, PT) History of bladder surgery (Acute) Medical History (Last Reviewed 06/07/18 @ 08:38 by Fatimah Parker, PT) Anxiety (Acute) Bilateral shoulder pain (Acute) GERD (gastroesophageal reflux disease) (Acute) History of headache (Acute) Hot flashes (Acute) Hyperlipidemia (Acute) Impaired vision (Acute) Impairment of balance (Acute) Osteoarthritis (Acute) Other intervertebral disc degeneration, lumbar region (Acute) Post-menopause (Acute) Primary osteoarthritis of left hip (Acute) Physical Therapy Inpatient Evaluation/Re-Eval M1 PT/OT-IP Prior Functional Status Start: 09/28/19 08:29 Freq: NEEDED Status: Active Protocol: Document 09/28/19 09:13 AW (Rec: 09/28/19 10:14 AW [email or web address]) Medical Review Prior Functional Status Medical History Reviewed Yes Diet/Fluid Consistency Regular Communication WNL, Honduran-speaking. Mobility and Gait Independent without assistive device or limitation Activities of Daily Living and IADL's Independent Social History Household Members spouse,family,children Living Arrangements House Number of Floors (Floors) One Floor Number of Stairs To Enter/Railing? 5 RAMYA with bilateral rails Home Environment Standard Height Toilet,Tub/ Shower Home Equipment Front Wheel Walker,Four Wheel Walker,Straight Cane,Raised Toilet Seat w/Armrests,Shower Seat without Backrest,Grab Bars In Shower Additional Social History Comment Pt lives with her spouse, Paul, and her grandson. They are both able to provide assist as needed. M2 PT-IP Current Condition Start: 09/28/19 08:29 Freq: NEEDED Status: Active Protocol: Document 09/28/19 09:13 AW (Rec: 09/28/19 10:14 AW [email or web address]) Physical Therapy Current Condition Current Condition Evaluation Date 09/28/19 Treatment Diagnosis s/p R TSA, decreased independence with ADL's Precautions Shoulder Precautions Sling,PROM,Internal Rotation to Body,No External Rotation, No Abduction,Forward Flexion to 90 degrees,Pendulums Weight Bearing Status Weight Bearing Status Full Weight Bearing M3 PT-IP Subjective Start: 09/28/19 08:29 Freq: NEEDED Status: Active Protocol: Document 09/28/19 09:13 AW (Rec: 09/28/19 10:14 AW [email or web address]) Subjective Physical Therapy Visit Type Type Initial Evaluation Visit Start Time 08:40 Visit Stop Time 09:11 Total Visit Minutes 31 Notes Pt seen with spouse in room providing dumpcart driver service as needed. Number of MACHINE PAINT MIXER Visits 0 Physical Therapy Visit Comments Patient Comments I'm ready to get up Patient Goals To go home today Therapy Pain Assessment Pain When Pain Assessed During Mobility Pain Present Pain Present Pain Reported Location Right Arm Intensity 1 Scale Used 0/10 at rest; 1/10 with mobility Pain Management Techniques Apply Cold,Re-positioning, Timing of Activity with Medications M4 PT-IP Mobility and Gait Start: 09/28/19 08:29 Freq: NEEDED Status: Active Protocol: Document 09/28/19 09:13 AW (Rec: 09/28/19 10:14 AW [email or web address]) PT-Bed Mobility Assessment Supine to Sit Supine to Sit Independent Sit to Supine Sit to Supine Independent Scooting Scooting to Edge of Bed Independent PT-Transfer Assessment Sit to and From Stand Sit to and from Stand Standby Assistance Equipment Transfer Assistive Device Gait Belt Orthotic/Prosthetic Devices or Brace: Yes Transfers Transfer Destination Chair Transfer Technique pt ambulated without AD Transfer Ability Level of Assist Standby Assistance Comments Mobility Comments Pt performed bed mobility independently and required SBA and feedback on shoulder position during transfers. Gait Assessment Gait Gait Assistance Required: Independent Distance (Feet) 250 Able to Maintain Weight Bearing Status Yes During Gait Assistive Devices Assistive Device Gait Belt Orthotic/Prosthetic Devices or Brace: Yes Gait Deviations General Gait Pattern Decreased Feet Clearance Comments Gait Comments Pt ambulated without need for assist 250 feet on level surface. She appropriately navigated obstacles and demonstrated good safety awareness with no evidence of active shoulder elevation. Stair Climbing Assessment Evaluation Level of Assist On Stairs Standby Assistance Devices Stair Climbing Assistive Devices Left Railing,Right Railing Technique/Endurance Stair Climbing Direction Ascend and Descend Stair Climbing Technique Step Over Step Number of Steps Climbed 3 Query Text: Stair Climbing Set # Repetitions (reps) 2 Comments Stair Climbing Comments Pt required no more than SBA. She has bilateral rails at home, so was able to use her LUE for support both up and down. PT-Balance Assessment Sitting Balance and Reactions Static Sitting Balance Ability Normal Dynamic Sitting Balance Ability Normal Standing Balance and Reactions Static Standing Balance Ability Normal Dynamic Standing Balance Ability Normal Device Used no AD M5 PT-IP Objective Assessments Start: 09/28/19 08:29 Freq: NEEDED Status: Active Protocol: Document 09/28/19 09:13 AW (Rec: 09/28/19 10:14 AW [email or web address]) Orientation Orientation/Cognition Level of Alertness Alert Orientation Name,Date,Place,Situation Language Function Ability Luxembourgish as Second Language Safety Awareness Understands Safety Issues Memory Description No Deficits Noted Gross Range of Motion Upper Extremity ROM Assessment Right Impaired Lower Extremity ROM Assessment Within Functional Limits Strength Upper Extremity Strength Assessment Right Impaired Lower Extremity Strength Assessment Within Functional Limits Comments Strength Comments BLE and LUE grossly 5/5 Sensation Assessment Sensation Gross Sensation WNL M6 PT-IP Treatment Start: 09/28/19 08:29 Freq: NEEDED Status: Active Protocol: Document 09/28/19 09:13 AW (Rec: 09/28/19 10:14 AW [email or web address]) Physical Therapy Treatment Exercises Exercises Shoulder Pendulums,Elbow Flexion/Extension,Wrist ROM, Hand ROM Education Education Provided Precautions,Weight Bearing Status,Post-Op Packet,Safety Brace Education [place],Patient, Caregiver Other Treatments Other Treatment Performed Educated pt on use of sling for all upright mobility and encouraged use of sling during sleep to maintain precautions . Pt and spouse were educated with mirror for visual feedback on donning and doffing of sling. Provided education on ADL's with spouse able to verbalize optimal techniques for dressing, bathing. M7 PT-IP Assessment and Plan Start: 09/28/19 08:29 Freq: NEEDED Status: Active Protocol: Document 09/28/19 09:13 AW (Rec: 09/28/19 10:14 AW [email or web address]) PT Summary Assessment and Plan Potential Rehabilitation Potential Excellent Status of Condition at Evaluation Stable Summary Impairments Pain,ROM,Strength,Gait Assessment Summary Pt is an active 64 yo [place]- speaking woman seen for PT evaluation on POD1 following R TSA. PLOF: Pt was independent in all regards. CLOF: Pt required no more than SBA for all mobilities. Pt and spouse verbalized and demonstrated understanding of sling management and ROM exercises. Pt is safe to discharge home when medically cleared, having met the functional goals of this plan of care. Goals Bed Mobility Goal Independent Transfer Goal Standby Assistance Gait Goal Standby Assistance Gait Distance 150 Other Goals up/down 5 stairs with unilateral rail SBA Days to Meet Goals 1 Frequency of Treatment Frequency Of Treatment Discharge Recommendations To Nursing Amount of Assist Needed Independent Discharge Recommendations PT Discharge Recommendations Home with Assistance, Outpatient PT
--- NOTE | 2019-09-28 11:12 | CM.DANOTE ---
DCP: Case received, EMR reviewed and met with patient. , Paul, present, for patient does not speak Egyptian. Introduced self and role. Was able to retrieve some baseline activity information from spouse. DCP assessment completed with information currently available. Patient is a 64 year old female who admitted yesterday morning to the care of the orthopedic team. PCP: Dr. Yoder. Payer: [employer] Out of [facility]. Patient came to the hospital for a surgical procedure. She had right shoulder arthroplasty. Patient had her surgery yesterday. Met with patient and , Paul, in her room. Patient was sitting up in her chair, she understands limited Egyptian, but was able to translate. Patient is planning on going home, has her arm in a sling, but has supportive and daughters, Pamela Forrester, that will be helping her out as well. She has been independent at home prior to the surgery. P: Patient has discharge orders. She will be going home today. Salena Denis RN/Marketing Sales Manager
--- NOTE | 2019-09-28 11:34 | PC.NURSE ---
Discharge Pt states pain controlled well with oxycodone. up with SBA at first and then independent. Needed assistance with sling application. d/c instructions provided to pt and . translated. Aware of f/u apt with MD. Dressing instructions went over with pt and . PIV and Drain removed without issue. Pt left in w/c with RESEARCH ENGINEER MARINE EQUIPMENT escort.
== END 2019-09-28 11:05 | disposition home or self-care (01) | DRG 483 ==
PROVIDERS: Admitting Provider Orthopaedic Surgery; Family Provider Family Medicine; PCP Family Medicine; Visit Provider Orthopaedic Surgery
PROC: 0RQJ0ZZ Repair Right Shoulder Joint, Open Approach (ICD-10-PCS; CPT 23472; principal; 2019-09-27 13:15)
DX: M19.011 Primary osteoarthritis, right shoulder (principal); Z96.643 Presence of artificial hip joint, bilateral; M25.711 Osteophyte, right shoulder; M25.811 Other specified joint disorders, right shoulder
CPT/HCPCS: 36415; 73020; 85027; 97161; 97530; C1776; J0330; J0690; J1100; J1170; J2250; J2405; J2704; J3010